=== PATIENT | male | born 1980 | race Two or more races ===

== ENCOUNTER 2025-01-02 14:50 | Emergency (ER) | payer OTHER ==
[~2025-01-02] VITALS: Ht 177.8 cm; Wt 108.9 kg
[2025-01-02 15:02] VITALS: BP 156/104; TEMP 98.5
[2025-01-02] MEDS ORDERED: HYDR28.318 TP (15:05)
[2025-01-02 15:39] VITALS: O2SAT 98
[2025-01-03 14:25] LABS: HIV-1 p24 ANTIGEN NON REACTIVE (NONREACTIVE); HIV-1/2 ANTIBODY NON REACTIVE (NONREACTIVE)
== END 2025-01-02 15:40 | disposition home or self-care (01) ==
LOC: ER 14:55
DX: L85.3 Xerosis cutis (principal); F15.10 Other stimulant abuse, uncomplicated; Z60.2 Problems related to living alone
CPT/HCPCS: 36415; 87806

== ENCOUNTER 2025-01-06 07:38 | Emergency (ER) | payer OTHER ==
[~2025-01-06] VITALS: Ht 177.8 cm; Wt 106.6 kg
[~2025-01-06 07:38] MED LIST: HYDR28.318 TP
[2025-01-06 08:34] LABS: BASOPHILS # (AUTO) 0.1 K/uL (0.0-0.2); BASOPHILS % (AUTO) 0.9 % (0.0-2.0); EOSINOPHILS # (AUTO) 0.4 K/uL (0.0-0.7); EOSINOPHILS % (AUTO) 3.5 % (0.0-6.0); HEMATOCRIT 51 % (39-51); LYMPHOCYTES # (AUTO) 1.8 K/uL (0.8-4.8); LYMPHOCYTES % (AUTO) 15.5 % (20.0-44.0); MEAN CORPUSCULAR HEMOGLOBIN 29 PG (26.0-33.0); MEAN CORPUSCULAR HGB CONC 33 g/dl (31.0-36.0); MEAN CORPUSCULAR VOLUME 88 fL (80-96); MONOCYTES # (AUTO) 0.8 K/uL (0.1-1.30); MONOCYTES % (AUTO) 6.8 % (2.0-12.0); NEUTROPHILS # (AUTO) 8.6 K/uL (1.8-8.9); NEUTROPHILS % (AUTO) 73.3 % (43.0-81.0); PLATELET COUNT (AUTO) 311 K/uL (150-450); RED BLOOD CELL COUNT(AUTO) 5.82 MIL/uL (4.5-6.0); RED CELL DISTRIBUTION WIDTH 14.3 % (11.5-15.0); WHITE BLOOD COUNT (AUTO) 11.7 K/uL (4.3-11.0)
[2025-01-06 08:44] LABS: CALCIUM, SERUM 9.4 mg/dL (8.5-10.1); CARBON DIOXIDE 30 mmol/L (21-32); CHLORIDE 100 mmol/L (98-107); GLUCOSE 104 mg/dL (74-106); POTASSIUM 4.7 mmol/L (3.5-5.1); SODIUM SERUM 137 mmol/L (136-145); UREA NITROGEN, BLOOD 14 mg/dL (7-18)
[2025-01-06] MEDS ORDERED: IV NS 0.9% 250 ML IV ONE (08:59)
[2025-01-06] MEDS ORDERED: CT SWABBABLE VALVE TRANS SET 1 EA INFUS.SET MC ONE (08:59)
[2025-01-06] MEDS ORDERED: IOHEXOL-350 100 ML VIAL IV ONE ×2 (08:59→09:45)
[2025-01-06] MEDS ORDERED: hydrALAZINE HCL IV 20 MG VIAL ONE (09:07)
[2025-01-06 09:08] LABS: NT-PRO BNP 28 pg/mL (0-125)
[2025-01-06] MEDS: hydrALAZINE HCL IV 20 MG VIAL IV ONE (09:11)
[2025-01-06] MEDS ORDERED: NALO4SPR BNOSTRILS (10:12)
[2025-01-06] MEDS ORDERED: AMLO-213 PO (10:46)
[2025-01-06] MEDS ORDERED: LABETALOL 20 MG/4 ML VIAL ONE (10:59)
[2025-01-06] MEDS: LABETALOL HCL IV 100MG VIAL IV ONE (11:08)
[2025-01-06 11:33] VITALS: BP 144/82; TEMP 98.3; O2SAT 97
[2025-01-06 21:09] LABS: HIV-1 p24 ANTIGEN NON REACTIVE (NONREACTIVE); HIV-1/2 ANTIBODY NON REACTIVE (NONREACTIVE)
== END 2025-01-06 11:33 | disposition home or self-care (01) ==
LOC: ER 07:40
DX: R07.89 Other chest pain (principal); I10 Essential (primary) hypertension; F17.200 Nicotine dependence, unspecified, uncomplicated; Z60.2 Problems related to living alone
CPT/HCPCS: 99285; 96374; 71045; 96375; 93005 ×2; 85025; 80048; 85378; 36415; 84484 ×2; 83880; 87806; 71275 ×2; J0360; J7050; J3490; Q9967 ×2